=== PATIENT | female | born 1945 | race Two or more races ===

== ENCOUNTER 2020-11-11 12:30 | Inpatient (IN) | payer OTHER ==
[~2020-11-11] VITALS: Ht 154.9 cm; Wt 43.1 kg
[2020-11-12] MEDS ORDERED: SERTRALINE HCL50 MG PO (11:39)
[2020-11-12] MEDS ORDERED: GLYXAMBI 10 MG1 EACH PO (11:39)
[2020-11-12] MEDS ORDERED: METFORMIN HCL500 M4 (11:39)
[2020-11-12] MEDS ORDERED: VITAMIN D350 MC3 PO (11:39)
[2020-11-12] MEDS ORDERED: ST. JOSEPH ASPI81 M2 PO (11:40)
[2020-11-12] MEDS ORDERED: OXYBUTYNIN CHLOR5 MG PO (11:40)
[2020-11-12] MEDS ORDERED: LISINOPRIL30 MG PO (11:40)
[2020-11-12] MEDS ORDERED: LOSARTAN POTAS100 MG PO (11:40)
[2020-11-12] MEDS ORDERED: ATORVASTATIN CA20 MG PO (11:40)
[2020-11-12] MEDS ORDERED: LISINOPRIL20 MG PO (12:09)
[2020-11-12] MEDS ORDERED: PROTONIX40 MG PO (14:58)
[2020-11-12] MEDS ORDERED: SPIRIVA RESPIMAT4 G1 IH (16:00)
[2020-11-12] MEDS ORDERED: ATROVENT HFA12.9 GM IH (16:00)
[2020-11-13] MEDS ORDERED: OXYBUTYNIN CHLOR5 MG (08:42)
== END 2020-11-14 14:51 | disposition home or self-care (01) | DRG 747 ==
LOC: EDUNIT# 12:30 → OB/GYN 11-13 06:37 → O/R 11-13 06:37 → OB/GYN 11-13 12:30
PROVIDERS: ADMIT Specialist; ATTEND Specialist
PROC: 0UBG8ZZ Excision of Vagina, Via Natural or Artificial Opening Endoscopic (ICD-10-PCS; principal; 2020-11-13 13:15)
DX: D07.2 Carcinoma in situ of vagina (principal); D28.1 Benign neoplasm of vagina

== ENCOUNTER 2020-11-12 11:31 | Emergency (ER) | payer OTHER ==
[~2020-11-12] VITALS: Ht 154.9 cm; Wt 43.1 kg
[2020-11-12] MEDS ORDERED: VITAMIN D350 MC3 PO (11:39)
[2020-11-12] MEDS ORDERED: METFORMIN HCL500 M4 (11:39)
[2020-11-12] MEDS ORDERED: GLYXAMBI 10 MG1 EACH PO (11:39)
[2020-11-12] MEDS ORDERED: SERTRALINE HCL50 MG PO (11:39)
[2020-11-12] MEDS ORDERED: LISINOPRIL30 MG PO (11:40)
[2020-11-12] MEDS ORDERED: ATORVASTATIN CA20 MG PO (11:40)
[2020-11-12] MEDS ORDERED: ST. JOSEPH ASPI81 M2 PO (11:40)
[2020-11-12] MEDS ORDERED: LOSARTAN POTAS100 MG PO (11:40)
[2020-11-12] MEDS ORDERED: OXYBUTYNIN CHLOR5 MG PO (11:40)
[2020-11-12] MEDS ORDERED: LISINOPRIL20 MG PO (12:09)
[2020-11-12] MEDS ORDERED: PROTONIX40 MG PO (14:58)
[2020-11-12] MEDS ORDERED: SPIRIVA RESPIMAT4 G1 IH (16:00)
[2020-11-12] MEDS ORDERED: ATROVENT HFA12.9 GM IH (16:00)
[2020-11-13] MEDS ORDERED: OXYBUTYNIN CHLOR5 MG (08:42)
== END 2020-11-12 13:00 | disposition home or self-care (01) ==
LOC: ER 11:31
DX: R60.0 Localized edema (principal); T36.8X5A Adverse effect of other systemic antibiotics, initial encounter; Y92.238 Other place in hospital as the place of occurrence of the external cause